=== PATIENT | female | born 1955 ===

== ENCOUNTER 2021-11-02 12:28 | Outpatient (CLI) | payer MEDICARE | END 2021-11-02 12:29 | disposition short-term general hospital (02) | LOC: EMS 12:28 | DX: R07.9 Chest pain, unspecified (principal) | CPT/HCPCS: A0425; A0429 ==

== ENCOUNTER 2021-12-16 18:50 | Outpatient (CLI) | payer MEDICARE | END 2021-12-16 18:51 | disposition left against medical advice (07) | LOC: EMS 18:50 | DX: R07.89 Other chest pain (principal) ==

== ENCOUNTER 2022-01-14 13:38 | Outpatient (CLI) | payer MEDICARE | END 2022-01-14 13:39 | disposition short-term general hospital (02) | LOC: EMS 13:38 | DX: R07.9 Chest pain, unspecified (principal) | CPT/HCPCS: A0425; A0427 ==